=== PATIENT | female | born 1975 | race African-American/Black ===

== ENCOUNTER 2019-05-06 17:45 | Emergency (ER) | payer OTHER, MEDICAID ==
[2019-05-06 18:07] VITALS: BP 138/69
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
== END 2019-05-06 18:48 | disposition home or self-care (01) ==
LOC: ER 17:45
DX: M54.5 Low back pain (principal); R51 Headache; V49.50XA Passenger injured in collision with unspecified motor vehicles in traffic accident, initial encounter
CPT/HCPCS: 99283